=== PATIENT | male | born 1980 | race Two or more races ===

== ENCOUNTER 2018-10-04 00:59 | Emergency (ER) | payer SELFPAY ==
[~2018-10-04] VITALS: Ht 165.1 cm; Wt 68.0 kg
[2018-10-04] MEDS ORDERED: LORazepam Inj 2mg/ml 1ml ONE (01:10)
[2018-10-04] MEDS ORDERED: LORazepam Inj 2mg/ml 1ml IM ONE ×2 (01:15→02:00)
--- NOTE | 2018-10-04 01:21 | NUR ---
ED Nurse Note: Per Dr. cooleyide Lorazepam 2mg/mL, administered 1mg. Will waste 1 mg in the pixes.
[2018-10-04 01:26] VITALS: BP 144/91
--- NOTE | 2018-10-04 01:30 | NUR ---
ED Nurse Note: Patient was BIBA from home due to ETOH. Per patient' mom he had too much alcohol. AAO x1, HR is 135, other VSS at this time, skin is dry, warm to touch. Patient was givem 1mg of Ativan.
[2018-10-04 01:52] LABS: BASOPHILS % (AUTO) 1.7 % (0.0-2.0); EOSINOPHILS % (AUTO) 0.1 % (0.0-3.0); HEMATOCRIT 39.1 % (42.0-52.0); HEMOGLOBIN 13.6 G/DL (14.2-18.0); LYMPHOCYTES % (AUTO) 22.7 % (20.0-45.0); MEAN CORPUSCULAR VOLUME 91 FL (80-99); MONOCYTES % (AUTO) 8.3 % (1.0-10.0); NEUTROPHILS % (AUTO) 67.3 % (45.0-75.0); PLATELET COUNT 204 K/UL (150-450); RED BLOOD COUNT 4.31 M/UL (4.70-6.10); RED CELL DISTRIBUTION WIDTH 11.3 % (11.6-14.8); WHITE BLOOD COUNT 7.2 K/UL (4.8-10.8)
[2018-10-04] MEDS ORDERED: DiphenhydrAMINE 50mg/ml Inj IM ONE (02:00)
[2018-10-04] MEDS ORDERED: Haloperidol 5mg/ml Inj IM ONE (02:00)
[2018-10-04] MEDS ORDERED: LORazepam Inj 2mg/ml 1ml IV ONE (02:00)
[2018-10-04 02:04] LABS: ANION GAP 19 mmol/L (5-15); BLOOD UREA NITROGEN 9 mg/dL (7-18); CALCIUM 10.7 MG/DL (8.5-10.1); CARBON DIOXIDE 23 MMOL/L (21-32); CHLORIDE 97 MMOL/L (98-107); CREATININE 1.1 MG/DL (0.55-1.30); POTASSIUM 3.2 MMOL/L (3.5-5.1); SODIUM 139 MMOL/L (136-145)
[2018-10-04 02:19] LABS: ALANINE AMINOTRANSFERASE 244 U/L (12-78); ALBUMIN 4.9 G/DL (3.4-5.0); ALBUMIN/GLOBULIN RATIO 1.1 (1.0-2.7); ALKALINE PHOSPHATASE 128 U/L (46-116); ASPARTATE AMINO TRANSFERASE 267 U/L (15-37); BILIRUBIN,TOTAL 1.1 MG/DL (0.2-1.0)
--- NOTE | 2018-10-04 02:22 | Emergency Room Report ---
History of Present Illness General Chief Complaint: Alcohol Intoxication Source: Patient, Family Member, EMS Present Illness HPI Patient is a 38-year-old male brought in by [employer] with EMS after increased agitation. Patient reportedly had prior history of alcohol abuse and drinks regularly. Mom states that he had become increasingly agitated. Patient was noted to have prior history of alcohol abuse. Per patient's mom he was drinking alcohol earlier in the day. History is limited by patient's poor historian Allergies: Coded Allergies: No Known Allergies (Unverified , 10/04/18) Patient History Reviewed Nursing Documentation: PMH: Agreed; PSxH: Agreed Nursing Documentation-PMH History Of Psychiatric Problem: Yes - ETOH Review of Systems All Other Systems: limited - by poor historian Physical Exam Vital Signs Date Time Temp Pulse Resp B/P (MAP) Pulse Ox O2 Delivery O2 Flow Rate FiO2 10/04/18 01:00 98.8 125 18 144/91 (108) 98 Room Air Sp02 EP Interpretation: reviewed, normal General Appearance: alert, moderate distress Head: atraumatic ENT: normal ENT inspection, hearing grossly normal, normal voice Neck: normal inspection, full range of motion Respiratory: normal inspection, lungs clear, normal breath sounds, no respiratory distress, no retraction, no wheezing Cardiovascular #1: regular rate, rhythm, no edema Gastrointestinal: normal inspection, normal bowel sounds, non tender, soft, no guarding, no hernia Genitourinary: no CVA tenderness Musculoskeletal: normal inspection, back normal, normal range of motion Neurologic: alert, oriented x3, responsive, other - tremulousness Psychiatric: mood/affect normal, anxious Skin: normal inspection, normal color, no rash Medical Decision Making Restraint Attestation I, Eren Bradford MD, have personally evaluated this patient. Laboratory tests have been reviewed and addressed accordingly. The patient is deemed to present a danger to themselves and/or others. This is based on the exam, history ( provided by patient, EMS/[employer] and/or family) and observed or reported behavior. Attempts for non-invasive measures have been considered and/or attempted, however, have been futile. It is in the best interest of the nursing staff, the patient, and others involved in this patient's care that behavioral restraints be applied. Patient evaluation reveals the following: Markedly agitated patient with confusion attempted to get out of the bed. Diagnostic Impression: Primary Impression: Acute alcoholic intoxication Additional Impression: Substance abuse ER Course Patient presented for altered mental status and increased agitation. Differential diagnosis include was not limited to alcohol withdrawal, alcohol intoxication, stimulant abuse among others. Patient was noted to be markedly agitated. He was given IV Ativan and IM Ativan. Patient was noted to have some improvement however he continued to be somewhat agitated and confused. Patient was ultimately given Haldol and Benadryl. He was started on IV fluids. He was noted to have some improvement in his symptoms. Laboratory testing was notable for initial elevation of lactic acid consistent with alcohol abuse.patient was noted to have improvement acidosis once more calm. Patient was noted to have elevated blood alcohol level as well as urine drug screen which was positive for amphetamine. Patient was observed in the emergency department. He was briefly placed in restraints due to agitation and concern for possible self injury. Patient was noted to have improvement in symptoms after observation in the emergency department when less intoxicated. Labs Test 10/04/18 01:35 10/04/18 03:14 10/04/18 04:20 White Blood Count 7.2 K/UL (4.8-10.8) Red Blood Count 4.31 M/UL (4.70-6.10) Hemoglobin 13.6 G/DL (14.2-18.0) Hematocrit 39.1 % (42.0-52.0) Mean Corpuscular Volume 91 FL (80-99) Mean Corpuscular Hemoglobin 31.6 PG (27.0-31.0) Mean Corpuscular Hemoglobin Concent 34.8 G/DL (32.0-36.0) Red Cell Distribution Width 11.3 % (11.6-14.8) Platelet Count 204 K/UL (150-450) Mean Platelet Volume 7.7 FL (6.5-10.1) Neutrophils (%) (Auto) 67.3 % (45.0-75.0) Lymphocytes (%) (Auto) 22.7 % (20.0-45.0) Monocytes (%) (Auto) 8.3 % (1.0-10.0) Eosinophils (%) (Auto) 0.1 % (0.0-3.0) Basophils (%) (Auto) 1.7 % (0.0-2.0) Sodium Level 139 MMOL/L (136-145) Potassium Level 3.2 MMOL/L (3.5-5.1) Chloride Level 97 MMOL/L (98-107) Carbon Dioxide Level 23 MMOL/L (21-32) Anion Gap 19 mmol/L (5-15) Blood Urea Nitrogen 9 mg/dL (7-18) Creatinine 1.1 MG/DL (0.55-1.30) Estimat Glomerular Filtration Rate > 60 mL/min (>60) Glucose Level 115 MG/DL (74-106) Calcium Level 10.7 MG/DL (8.5-10.1) Total Bilirubin 1.1 MG/DL (0.2-1.0) Direct Bilirubin 0.5 MG/DL (0.0-0.3) Aspartate Amino Transf (AST/SGOT) 267 U/L (15-37) Alanine Aminotransferase (ALT/SGPT) 244 U/L (12-78) Alkaline Phosphatase 128 U/L (46-116) Total Protein 9.3 G/DL (6.4-8.2) Albumin 4.9 G/DL (3.4-5.0) Globulin 4.4 g/dL Albumin/Globulin Ratio 1.1 (1.0-2.7) Salicylates Level < 0.2 ug/mL (2.8-20) Acetaminophen Level < 2 MCG/ML (10-30) Serum Alcohol 143 mg/dL Lactic Acid Level 2.40 mmol/L (0.66-2.22) Urine Opiates Screen Negative (NEGATIVE) Urine Barbiturates Screen Negative (NEGATIVE) Phencyclidine (PCP) Screen Negative (NEGATIVE) Urine Amphetamines Screen Positive (NEGATIVE) Urine Benzodiazepines Screen Negative (NEGATIVE) Urine Cocaine Screen Negative (NEGATIVE) Urine Marijuana (THC) Screen Negative (NEGATIVE) Last Vital Signs Date Time Temp Pulse Resp B/P (MAP) Pulse Ox O2 Delivery O2 Flow Rate FiO2 10/04/18 01:26 125 18 Room Air 10/04/18 01:26 98.8 144/91 98 Status: improved Disposition: HOME, SELF-CARE Condition: Stable Scripts Lorazepam* (ATIVAN*) 1 Mg Tablet 1 MG ORAL THREE TIMES A DAY, #10 TAB Prov: Eren Bradford MD 10/04/18 Referrals: NOT CHOSEN IPA/,REFERRING (PCP) Eren Bradford MD Oct 04, 2018 02:22
[2018-10-04] MEDS ORDERED: D5 1/2NS w/KCl 20mEq 1,000 ML IV SCH (02:30)
[2018-10-04 02:49] LABS: BILIRUBIN,DIRECT 0.5 MG/DL (0.0-0.3)
--- NOTE | 2018-10-04 03:22 | NUR ---
ED Nurse Note: Patient starterd desating, O2 was 71%, placed patient on 2L, via NC.
[2018-10-04 05:04] VITALS: BP 137/86
[2018-10-04] MEDS ORDERED: ATIVAN1 MG ORAL (06:07)
[2018-10-04 06:26] VITALS: BP 137/86
--- NOTE | 2018-10-04 06:26 | NUR ---
ER DISCHARGE NOTE: Patient is cleared to be discharged per ERMD, pt is aox4, on room air, with stable vital signs. pt was given dc and prescription instructions, pt was able to verbalize understanding, pt id band and iv site removed without complications. pt is able to ambulate with steady gait. pt took all belongings.
== END 2018-10-04 06:27 | disposition home or self-care (01) ==
LOC: EDBD 00:59 → EMR 01:30
DX: F10.129 Alcohol abuse with intoxication, unspecified (principal); R45.1 Restlessness and agitation
CPT/HCPCS: 36415; 80053; 80307; 82248; 83605; 85025; 96361; 96372; 96374; 99284; G0480; J1200; J1630; 80329; J8499